=== PATIENT | female | born 1995 | race Caucasian/White ===

== ENCOUNTER 2023-02-06 14:58 | Emergency (ER) | payer OTHER, SELFPAY ==
--- NOTE | ~2023-02-06 | CT_ITS ---
EXAMINATION: CT brain wo con DATE: 02/06/2023 15:50 INDICATION: Sudden onset of numbness the head and upper extremities TECHNIQUE: Computed tomography (CT) of the head was performed without intravenous contrast. Sagittal and coronal reconstructions were performed. The mA was adjusted according to patient size. Iterative reconstruction technique was employed. The dose-length product was 605.33 mGy-cm. COMPARISON: None FINDINGS: No acute intracranial hemorrhage, acute infarction or abnormal extra axial fluid collection. Ventricl es are normal and symmetric. No mass/mass effect. The orbits, paranasal sinuses and mastoid air cells are normal. IMPRESSION: 1. Normal head CT. Reviewed, dictated and finalized at location A. IMPRESSION: 1. Normal head CT.
--- NOTE | 2023-02-06 15:01 | ECG_ITS ---
Measurements Intervals [place] Rate: 73 P: 69 WA: 135 QRS: 80 QRSD: 101 T: 66 QT: 379 QTc: 418 Interpretive Statements SINUS RHYTHM ST-ELEVATION, LIKELY EARLY REPOLARIZATION OTHERWISE NORMAL ECG NO PREVIOUS ECG AVAILABLE FOR COMPARISON Electronically Signed On 02-07-2023 10:19:12 CDT by Celestino Jamil M.D.
[2023-02-06 15:02] VITALS: BP 138/85; PULSE 101; RESP 20; TEMP 37.2; O2SAT 100
--- NOTE | 2023-02-06 15:19 | ED.WEAKNESS ---
HPI - Weakness General Chief complaint: Anxiety Stated complaint: Anxiety Time Seen by Provider: 02/06/23 15:01 Source: patient and family Mode of arrival: ambulatory Limitations: no limitations History of Present Illness HPI Narrative: patient is a 27-year-old female who is traveling from [place] to [place] back home at this time with her . Patient claims no anxiety however presents with bilateral facial numbness and lip tingling and bilateral hand cramps. Onset (ago): minute(s) ( Last known well was 30 minutes prior to arrival which was 2:30 p.m.) Duration: constant Location: LUE, RUE, left hand, right hand and face Migration: none Severity: moderate Quality: tingling and numbness Relieving factors: none Exacerbating factors: none Associated symptoms: denies other symptoms Related Data Home Medications Medication Instructions Recorded Confirmed amitriptyline 50 mg tablet 50 mg PO HS 02/06/23 02/06/23 Allergies Allergy/AdvReac Type Severity Reaction Status Date / Time No Known Allergies Allergy Verified 02/06/23 16:00 Review of Systems Review of Systems: All systems reviewed & are unremarkable except as noted in HPI and below Constitutional: Constitutional: Reports no additional constitutional complaints Eyes: Eyes: Reports no additional eye complaints ENT: Reports system reviewed and no additional complaints, except as documented Cardiovascular: Cardiovascular: Reports no additional cardiovascular complaints Respiratory: Respiratory: Reports no additional respiratory complaints Gastrointestinal: Gastrointestinal: Reports no additional gastrointestinal complaints Genitourinary: Genitourinary: Reports no additional female genitourinary complaints Musculoskeletal: Musculoskeletal: Reports no additional musculoskeletal complaints Integumentary/Breasts: Skin/Breast: Reports system reviewed and no additional complaints, except as docu Neurologic: Reports system reviewed and no additional complaints, except as documented Psychiatric: Psychiatric: Reports no additional psychiatric complaints Endocrine: Endocrine: Reports no additional endocrine complaints Hematologic/Lymphatic: Hematologic/Lymphatic: Reports no additional hematologic/lymphatic complaints Allergic/Immunologic: Allergic/Immunologic: Reports no additional allergic/immunologic complaints Exam Const: General: healthy appearing Nutritional Appearance: well nourished HENMT: Head: normal to inspection Eyes: Conjunctivae: conjunctivae normal Pupils: Equal, round and reactive pupils present Neck: Neck: normal visual inspection Chest: Chest palpation & inspection: normal inspection of the chest Resp: Effort & Inspection: normal respiratory effort Auscultation: clear to auscultation bilaterally Cardio: Rate: regular rate Rhythm: regular rhythm Heart sounds: no murmurs GI: Inspection: non-distended GI Palp: Yes Soft to palpation and No Tenderness to palpation present (GI) : General: Yes bladder normal to palpation External Female Exam: normal external appearance Back/Spine/Pelvis: Back: no CVA tenderness Skin: General skin exam: normal color Rashes: no rashes Neuro: General: patient oriented x3, moves all extremities, no meningeal signs, no focal motor deficits and CN's II-XI intact bilaterally Cranial nerves: Yes Nystagmus not present Speech: normal speech Gait exam (Neuro): Normal gait present Other: fast exam was negative/normal NIH score is 0 GCS was 15 patient is having complaint of just numbness of the lips bilaterally and the face bilaterally as well as bilateral hand cramps Extrem: General: normal to inspection Other: bilateral hand finger cramps Psych: Affect: Anxious affect present Course Vital Signs Vital signs: Vital Signs Temperature 37.2 C 02/06/23 15:02 Pulse Rate 101 H 02/06/23 15:02 Respiratory Rate 20 02/06/23 15:02 Blood Pressure 138/85 02/06/23
[2023-02-06] MEDS: ALPRAZolam (*CRX) 0.5 MG TABLET PO (16:03)
[2023-02-06 16:39] LABS: Appearance Urine Clear (Clear); Bilirubin Urine Negative (Negative); Blood Urine Negative (Negative); Color Urine Light Yellow (Yellow); Glucose Urine UA Negative (Negative); Ketones Urine Negative (Negative); Leukocyte Esterase Ur Negative LEU/UL (Negative); Nitrate Urine Negative (Negative); Protein Urine Negative (Negative); Specific Grav Ur <= 1.005 (1.010-1.020); Urobilinogen Urine 0.2 mg/dL (0.2-1.0); pH Urine 7.5 (5.0-8.0)
[2023-02-06 16:42] LABS: Add Urine Microscopic? NO
[2023-02-06 16:43] LABS: Pregnancy On Board Control Positive; Urine Pregnancy Test Negative
[2023-02-06 16:45] LABS: Amphetamine Screen Urine Negative (Negative); Barbiturate Screen Urine Negative (Negative); Benzodiazepines Screen Urine Negative (Negative); Cannabinoid Screen Urine Negative (Negative); Cocaine Screen Urine Negative (Negative); Methadone Screen Urine Negative (Negative); Opiate Screen Urine Negative (Negative); Phencyclidine Screen Urine Negative (Negative)
[2023-02-06 17:34] VITALS: BP 128/80; PULSE 88; RESP 20; TEMP 36.7; O2SAT 100
== END 2023-02-06 17:20 | disposition home or self-care (01) ==
PROVIDERS: Emergency Provider Emergency Medicine
DX: F41.0 Panic disorder [episodic paroxysmal anxiety] (principal); Z79.899 Other long term (current) drug therapy
CPT/HCPCS: 70450; 80307; 81003; 81025; 93005; 99284; A9270